=== PATIENT | female | born 1930 | race Two or more races ===

== ENCOUNTER 2018-10-27 07:45 | Inpatient (IN) | payer OTHER ==
[~2018-10-27] VITALS: Ht 152.4 cm; Wt 59.0 kg
[2018-10-27] MEDS ORDERED: CALCIUM PO (09:42)
[2018-10-27] MEDS ORDERED: ZEGERID 40 MG1 EACH PO (09:43)
[2018-10-27] MEDS ORDERED: ATORVASTATIN CA10 MG PO (09:43)
[2018-10-27] MEDS ORDERED: GLUMETZA500 MG PO (09:44)
[2018-10-27] MEDS ORDERED: ZESTRIL5 MG PO (09:44)
== END 2018-11-04 17:56 | disposition home or self-care (01) | DRG 330 ==
LOC: O/R 11-01 05:10 → SURG 11-01 05:10 → SURH 11-01 07:45 → SURG 11-02 12:01
PROVIDERS: ADMIT Colon & Rectal Surgery
PROC: 07TC4ZZ Resection of Pelvis Lymphatic, Percutaneous Endoscopic Approach (ICD-10-PCS; 2018-11-01)
PROC: 0DTU4ZZ Resection of Omentum, Percutaneous Endoscopic Approach (ICD-10-PCS; 2018-11-01)
PROC: 0DTF4ZZ Resection of Right Large Intestine, Percutaneous Endoscopic Approach (ICD-10-PCS; principal; 2018-11-01 14:15)
DX: C18.0 Malignant neoplasm of cecum (principal); J95.89 Other postprocedural complications and disorders of respiratory system, not elsewhere classified; J98.11 Atelectasis; D12.0 Benign neoplasm of cecum; I10 Essential (primary) hypertension

== ENCOUNTER 2018-10-27 12:05 | Outpatient (CLI) | payer OTHER ==
[~2018-10-27 12:05] MED LIST: ATORVASTATIN CA10 MG PO; CALCIUM PO; GLUMETZA500 MG PO; ZEGERID 40 MG1 EACH PO; ZESTRIL5 MG PO
== END 2018-10-27 15:55 | disposition home or self-care (01) ==
LOC: NUCLEAR 12:05
DX: I10 Essential (primary) hypertension (principal)